=== PATIENT | female | born 1990 | race Caucasian/White ===

== ENCOUNTER 2020-07-28 14:33 | Outpatient (REF) | payer OTHER, SELFPAY ==
--- NOTE | ~2020-07-28 | XR_ITS ---
EXAMINATION: XR HAND, LEFT CLINICAL INFORMATION: Pain COMPARISON: None TECHNIQUE: PA, lateral, and oblique views of the left hand. FINDINGS: There is no fracture or dislocation. Alignment is anatomic. No osseous erosions. Joint spaces are maintained. The soft tissues are unremarkable. XR/XR hand LT 2V IMPRESSION: Normal left hand.
== END 2020-07-28 14:34 | disposition home or self-care (01) ==
LOC: HO.XRAY 14:33
PROVIDERS: PCP Internal Medicine Geriatric Medicine; Visit Provider Internal Medicine Geriatric Medicine
DX: M79.642 Pain in left hand (principal)
CPT/HCPCS: 73120

== ENCOUNTER 2020-12-10 09:41 | Outpatient (REF) | payer OTHER, SELFPAY ==
--- NOTE | 2020-12-10 | EMG_ITS ---
This is a 30-year-old woman with a 3-year history of pain, numbness, and tingling in both hands. MEDICATIONS: She is on no medications. PHYSICAL EXAMINATION: She is alert and oriented with normal intellectual functions. Cranial nerves II through XII are normal. Muscle tone and strength are normal in all 4 extremities. No Tinel or Phalen sign. IMPRESSION: Rule out carpal tunnel syndrome. Nerve conduction EMG study: Normal electrodiagnostic study of both upper extremities with no evidence of carpal tunnel syndrome or nerve entrapment. Normal EMG of the right C5-T1 innervated muscles. MD CHELSEY Galvan/PHIL / [id number]
== END 2020-12-10 09:42 | disposition home or self-care (01) ==
LOC: HO.NEURO 09:41
PROVIDERS: Visit Provider Internal Medicine Geriatric Medicine
DX: R20.0 Anesthesia of skin (principal); M79.641 Pain in right hand; M79.642 Pain in left hand
CPT/HCPCS: 95886; 95913

== ENCOUNTER 2021-09-29 10:02 | Outpatient (REF) | payer OTHER, SELFPAY ==
--- NOTE | ~2021-09-29 | US_ITS ---
EXAMINATION: US ABDOMEN LIMITED CLINICAL INFORMATION: Palpable mass 3-4 cm left of the umbilicus. Pain. Rule out hernia/mass. COMPARISON: None. TECHNIQUE: Real-time imaging of the region indicated by the patient, 3-4 cm left of the umbilicus. US/US abdomen limited FINDINGS/IMPRESSION: In the area of clinical concern to the left of the umbilicus there is no hernia or discrete lesions identified. If symptoms persist, recommend a follow-up ultrasound or evaluation with a different imaging modality such as CT.
== END 2021-09-29 10:03 | disposition home or self-care (01) ==
LOC: HO.US 10:02
PROVIDERS: PCP Internal Medicine Geriatric Medicine; Visit Provider Registered Nurse Community Health
DX: R10.9 Unspecified abdominal pain (principal)
CPT/HCPCS: 76705

== ENCOUNTER 2022-08-16 14:38 | Outpatient (REF) | payer OTHER, SELFPAY ==
--- NOTE | ~2022-08-16 | US_ITS ---
EXAMINATION: US ABDOMEN LIMITED CLINICAL INFORMATION: Nausea and vomiting. COMPARISON: Ultrasound abdomen limited 09/29/2021. TECHNIQUE: Real-time imaging of the right upper quadrant abdominal viscera. FINDINGS: PANCREAS: The pancreas appears unremarkable, without masses or ductal dilatation, with the exception of the tail which is obscured by bowel gas. LIVER: The liver is enlarged and demonstrates increased attenuation consistent with hepatic steatosis. The liver contour is normal. There is no intrahepatic biliary duct dilatation seen. GALLBLADDER: The gallbladder is physiologically distended. Multiple mobile gallstones are present. A small amount of fluid is seen within the wall of the gallbladder. No evidence of a pericholecystic fluid collection. Serrano's sign is negative. COMMON BILE DUCT: Normal in caliber measuring 0.3 cm in diameter. RIGHT KIDNEY: No hydronephrosis. No renal calculi or focal parenchymal lesions. The kidney measures 11.0 cm in maximum dimension. FREE FLUID: None. US/US abdomen limited IMPRESSION: 1 Cholelithiasis with a small amount of fluid in the wall of the gallbladder. Negative Serrano's sign. 2. Enlarged fatty liver.
== END 2022-08-16 14:39 | disposition home or self-care (01) ==
LOC: HO.US 14:38
PROVIDERS: PCP Internal Medicine Geriatric Medicine; Visit Provider Emergency Medicine
DX: R11.2 Nausea with vomiting, unspecified (principal)
CPT/HCPCS: 76705

== ENCOUNTER → 2022-09-14 09:47 | Outpatient (BNVA) | payer OTHER, SELFPAY | PROVIDERS: PCP Internal Medicine Geriatric Medicine; Referring Provider Emergency Medicine; Visit Provider Surgery | DX: K80.50 Calculus of bile duct without cholangitis or cholecystitis without obstruction (principal) | CPT/HCPCS: 99202 ==

== ENCOUNTER 2022-10-15 09:37 | Day surgery (SDC) | payer OTHER, SELFPAY ==
[2022-10-12 15:27] VITALS: BMI 38.5
--- NOTE | 2022-10-14 09:52 | P.CONAN_ITS ---
Documented by User: Magda Chua NP 10/14/22 09:52 HPI - Anesthesia Eval Consult details Narrative: 32yo F for Cholecystectomy Laparoscopic,Poss open PMFSH Active Problems Active Problems: All Active Problems (Updated 09/14/22 @ 10:08 by Deric Miller MD) Biliary colic (Acute) Past Medical History Medical History (Updated 10/14/22 @ 09:52 by Magda Chua NP) Appendix abscess Asthma Diabetes Ovarian cyst Family History Family History (Updated 09/14/22 @ 10:01 by NARA Dominguez) Father Hypertension Mother Hypertension Maternal Grandmother Breast cancer Maternal Aunt Breast cancer Social History Social History (Updated 09/14/22 @ 09:58 by NARA Dominguez) Alcohol intake: never Patient Tobacco Use Status: Never used Tobacco Are you DNR?: No Advance Directives: No Advance Directives Information Provided: Yes Recently lost weight without trying: No Nutrition Risks: No Nutritional Risk Meds Allergies Allergy/AdvReac Type Severity Reaction Status Date / Time No Known Allergies Allergy Verified 09/14/22 09:54 Home Medications Medication Instructions Recorded Confirmed Last Taken Type albuterol sulfate 1.25 mg/3 mL 1.25 mg inhalation QID PRN 09/14/22 Unknown History solution for nebulization cetirizine 10 mg capsule (Zyrtec) 10 mg PO DAILY PRN 09/14/22 Unknown History metformin 500 mg tablet 500 mg PO BID 09/14/22 Unknown History omeprazole 20 mg capsule,delayed 20 mg PO DAILY 09/14/22 Unknown History release Exam Exam Date and Time: October 14, 2022 0952 Height,Weight and Vital Signs: Height 5 ft 2 in Weight 95.481 kg Assessment and Plan Assessment Anesthesia Assessment: Chart Reviewed Documented by User: Mendel Daigle MD 10/15/22 10:42 PMFSH Past Medical History Medical History (Updated 10/14/22 @ 09:52 by Magda Toma, [employer]) Appendix abscess Asthma Diabetes Ovarian cyst Family History Family History (Updated 09/14/22 @ 10:01 by NARA Dominguez) Father Hypertension Mother Hypertension Maternal Grandmother Breast cancer Maternal Aunt Breast cancer Family history of problems with anesthesia: No Surgical History History of Problems with Anesthesia: No Social History Social History (Updated 09/14/22 @ 09:58 by NARA Dominguez) Alcohol intake: never Patient Tobacco Use Status: Never used Tobacco Are you DNR?: No Advance Directives: No Advance Directives Information Provided: Yes Recently lost weight without trying: No Nutrition Risks: No Nutritional Risk Meds Allergies Allergy/AdvReac Type Severity Reaction Status Date / Time No Known Allergies Allergy Verified 09/14/22 09:54 Home Medications Medication Instructions Recorded Confirmed Last Taken Type albuterol sulfate 1.25 mg/3 mL 1.25 mg inhalation QID PRN 09/14/22 Unknown History solution for nebulization cetirizine 10 mg capsule (Zyrtec) 10 mg PO DAILY PRN 09/14/22 Unknown History metformin 500 mg tablet 500 mg PO BID 09/14/22 Unknown History omeprazole 20 mg capsule,delayed 20 mg PO DAILY 09/14/22 Unknown History release Exam Airway Mallampati Class: II TM Dist: >3cm Neck ROM: Full Heart: rrr Lungs: cta Assessment and Plan Assessment Anesthesia Assessment: Anesthesia Plan Discussed Final Anesthetic Review Family History of Problems with Anesthesia: No History of Problems with Anesthesia: No NPO: Yes Final Preanesthetic Review: No Changes in Pt Med Stat, Meds/Allgs Chart Reviewed, Consent Obtained/Reviewed and Anes Risks/Benef Reviewed Patient Risk: Intermediate Procedure Risk: Intermediate Anesthetic Plan Anesthetic Plan: GA and Agree w/ Assess. and Plan Disposition: Standard PACU
--- NOTE | 2022-10-14 11:34 | MHC.SHP ---
Pre-Procedural Eval Section A Date of Service: 10/14/22 The patient is an INPATIENT: No Changes since office visit: No Cold of Flu in the past 2 weeks, No New Medical Problems, No Changes in Medication and No Patient answered all questions The History & Physical has been completed within 30 days and I have reviewed it.: Yes Section B Chief Complaint: Calculus of bile duct without cholangitis or zaynab Allergies: Allergies Allergy/AdvReac Type Severity Reaction Status Date / Time No Known Allergies Allergy Verified 09/14/22 09:54 Plan I have reviewed the history and physical and performed a pertinent physical examination on my patient. No changes have occurred unless specified. Time Spent With Patient Time: Total time managing care of this patient today ____ minutes.
[2022-10-15] VITALS (12 sets, daily range): BP systolic 105–126; BP diastolic 66–78; PULSE 60–76; RESP 16–20; TEMP 36.1–37.1; O2SAT 5–100
[2022-10-15 10:12] LABS: Glucose, Whole Blood 106 mg/dL (60-115)
[2022-10-15] MEDS: Lactated Ringers 1,000 ML 100 ML IVCONT (10:27)
[2022-10-15 10:40] LABS: UPreg QC Valid YES; Urine Pregnancy NEGATIVE (NEGATIVE)
--- NOTE | 2022-10-15 12:06 | W.PM.OPN ---
Operative Note Operative Note Date of Service: 10/15/22 Narrative: Preoperative diagnosis: []Recurrent biliary colic Postop diagnosis: [] same with superimposed acute cholecystitis Procedure [] laparoscopic cholecystectomy Surgeon: [] [employer] Operator; Jo Hodo Type of Anesthesia: [] general Indication for surgery: [] edematous inflamed Intrahepatic gallbladder with omental adhesions to it. corpulent abdomen Findings: [] patient is brought to the operating room, placed on the operating table in a supine position, after adequate level of general anesthesia was induced, the patient's abdomen was prepped and draped in usual sterile fashion. Using a supraumbilical curvilinear incision, Hurley technique was used to insufflate the abdominal cavity to 15 mm of CO2. Upper midline and right subcostal ports were placed under direct laparoscopic view, and the patient placed in reverse Trendelenburg position, and tilted to the left. Gallbladder was grasped using laparoscopic graspers, and retracted superiorly and laterally. Soft omental adhesions were swept off the gallbladder ,Where it is hilum was approached. The cystic artery and cystic duct were each identified, traced directly into the gallbladder respectively, circumferentially dissected out, and critical view obtained. Each was clipped proximally x2, distally x1, and transected. Markedly intrahepatic gallbladder was then cauterized from the gallbladder fossa with Bovie. Specimen was placed in an Endo-Catch bag, a retrieved through the umbilical port. Abdominal cavity was copiously irrigated and secured hemostasis. All ports were removed under direct laparoscopic view. Wounds were closed in the follow-up manner; umbilical wound has fascia reapproximated using interrupted 0 Vicryl sutures. Skin wounds were closed using subcuticular 4-0 Vicryl sutures followed by Steri-Strips and sterile dressings. Sponge, needle, and instrument counts reported to be correct. Patient tolerated the procedure well and emerged anesthesia stable condition. EBL minimal
[2022-10-15] MEDS: fentaNYL citrate/PF 100 MCG/2 ML VIAL 25 MCG IVPUSH ×4 (12:43→12:58)
[2022-10-15] MEDS: oxyCODONE HCl Immed Release 5 MG TABLET PO (12:48)
== END 2022-10-15 14:00 | disposition home or self-care (01) ==
PROVIDERS: Nurse Practitioner; PCP Internal Medicine Geriatric Medicine; Visit Provider Surgery
PROC: 0FT44ZZ Resection of Gallbladder, Percutaneous Endoscopic Approach (ICD-10-PCS; CPT 47562; principal; 2022-10-15 12:10)
DX: K80.10 Calculus of gallbladder with chronic cholecystitis without obstruction (principal); K82.8 Other specified diseases of gallbladder; J45.909 Unspecified asthma, uncomplicated; E11.9 Type 2 diabetes mellitus without complications; Z79.84 Long term (current) use of oral hypoglycemic drugs; Z79.899 Other long term (current) drug therapy
CPT/HCPCS: 47562; 81025; 82947; 88304; J0131; J0690; J1885; J2795; J3010

== ENCOUNTER → 2022-10-25 10:16 | Outpatient (BNVA) | payer OTHER, SELFPAY | PROVIDERS: PCP Internal Medicine Geriatric Medicine; Visit Provider Surgery | DX: Z87.19 Personal history of other diseases of the digestive system (principal) | CPT/HCPCS: 99212 ==

== ENCOUNTER 2023-12-30 09:13 | Outpatient (REF) | payer OTHER, SELFPAY ==
[2023-12-30 11:25] LABS: Alanine Aminotransferase 26 U/L (0-31); Albumin Level 4.3 g/dL (3.5-5.0); Alkaline Phosphatase 80 U/L (39-117); Anion Gap 13 (12-20); Aspartate Amino Transferase 18 U/L (5-31); Bilirubin Total 0.3 mg/dL (0.0-1.0); Blood Urea Nitrogen 12 mg/dL (9-16); Calcium 9.5 mg/dL (8.4-10.2); Carbon Dioxide 23 mmol/L (22-29); Chloride 109 mmol/L (96-108); Cholesterol 155 mg/dL (<200); Estimated Glomerular Filt Rate > 60; Glucose Random 104 mg/dL (60-115); HDL Cholesterol 36 mg/dL (>40); LDL Cholesterol Calculated 100 mg/dL (<100); Potassium 4.1 mmol/L (3.3-5.1); Sodium 141 mmol/L (135-145); Total Protein 7.4 g/dL (6.5-8.0); Triglycerides 99 mg/dL (<150)
[2023-12-30 11:46] LABS: Microalbum/Creatinine Ratio Ur 4.7 ug/mg cr (<30)
== END 2023-12-30 09:14 | disposition home or self-care (01) ==
LOC: HO.HHCL 09:13
PROVIDERS: Visit Provider Internal Medicine Geriatric Medicine
DX: E11.9 Type 2 diabetes mellitus without complications (principal)
CPT/HCPCS: 36415; 80053; 80061; 82043; 82570